=== PATIENT | male | born 1995 | race Caucasian/White ===

== ENCOUNTER 2020-12-29 12:05 | Emergency (ER) | payer OTHER ==
[2020-12-29 12:16] VITALS: RESP 18
[2020-12-29] MEDS ORDERED: MORPHINE SULFATE 2 MG/ML SYRINGE IVP ONE (12:20)
--- NOTE | 2020-12-29 12:21 | ED ---
Wound/Laceration HPI - General Source: patient, RN notes reviewed Mode of arrival: ambulatory Limitations: no limitations <Sea Herman - Last Filed: 12/29/20 12:21> - General Source: patient, RN notes reviewed Limitations: no limitations <Rebel Alfaro - Last Filed: 12/29/20 13:51> - General Chief Complaint: Wound/Laceration Stated Complaint: Foot lac IHS - History of Present Illness Initial Comments: 25-year-old male presents emergency department with a right great toe second toe third toe laceration due to a power washing accident work. He states his pain is about a 4-5 out of 10, his toes are more numb and tingly and painful. ( Sea Herman) Patient is a pleasant 25-year-old male presenting to the emergency Department with injury to the right foot. Incident occurred just prior to arrival. Patient had a power saw mechanic that was hooked up to a fire hydrant. Patient states there was strong on a pressure. Patient states he was cleaning out a large box. Patient states it was only water, no chemicals involved in the power saw mechanic. Patient states he accidentally had the power saw mechanic go over his right boot. Pat tjnt complains of discomfort 4/10. No other area of injury or concern. Patient denies any fall. No head injury. No neck or back pain. No chest pain or dyspnea. No abdominal pain. Unclear last tetanus immunization. (Rebel Alfaro) - Related Data Home Medications Medication Instructions Recorded Confirmed Multivitamin [Multivitamins Adult 2 tab PO DAILY 12/29/20 12/29/20 Gummies] Allergies Allergy/AdvReac Type Severity Reaction Status Date / Time No Known Allergies Allergy Verified 12/29/20 13:04 Review of Systems ROS Other: All systems not noted in ROS Statement are negative. <Sea Herman - Last Filed: 12/29/20 12:21> ROS Other: All systems not noted in ROS Statement are negative. Constitutional: Denies: fever Eyes: Denies: eye pain ENT: Denies: ear pain Respiratory: Denies: cough Cardiovascular: Denies: chest pain Endocrine: Denies: fatigue Gastrointestinal: Denies: abdominal pain Genitourinary: Denies: dysuria Musculoskeletal: Reports: as per HPI. Denies: back pain Skin: Reports: as per HPI Neurological: Denies: headache <Rebel Alfaro - Last Filed: 12/29/20 13:51> ROS Statement: Those systems with pertinent positive or pertinent negative responses have been documented in the HPI. Past Medical History Past Medical History: No Reported History History of Any Multi-Drug Resistant Organisms: None Reported Past Surgical History: No Surgical Hx Reported Past Psychological History: No Psychological Hx Reported Smoking Status: Vaper Past Alcohol Use History: Occasional Past Drug Use History: Marijuana <Sea Herman - Last Filed: 12/29/20 12:21> General Exam Limitations: no limitations General appearance: alert, in no apparent distress Head exam: Present: atraumatic, normocephalic, normal inspection Respiratory exam: Present: normal lung sounds bilaterally. Absent: respiratory distress, wheezes, rales, rhonchi, stridor Cardiovascular Exam: Present: regular rate, normal rhythm, normal heart sounds. Absent: systolic murmur, diastolic murmur, rubs, gallop, clicks GI/Abdominal exam: Present: soft, normal bowel sounds. Absent: distended, tenderness, guarding, rebound, rigid Extremities exam: Absent: full ROM (Decreased range of motion of right great toe second toe third toe), tenderness, normal capillary refill (Decreased capillary refill in the right great toe second toe third toe.), pedal edema, joint swelling, calf tenderness Neurological exam: Present: alert, oriented X3, CN II-XII intact Psychiatric exam: Present: normal affect, normal mood Skin exam: Present: warm, dry, intact, normal color. Absent: rash <Sea Herman - Last Filed: 12/29/20 12:21> Limitations: no limitations General appearance: alert Head exam: Present: atraumatic Eye exam: Present: normal appearance, PERRL ENT exam: Present: normal oropharynx Neck exam: Present: normal inspection. Absent: tenderness Respiratory exam: Present: normal lung sounds bilaterally Cardiovascular Exam: Present: regular rate, normal rhythm Expanded Peripheral pulses: 2+: Posterior Tibialis (R), Dorsalis Pedis (R) GI/Abdominal exam: Present: soft. Absent: tenderness Extremities exam: Present: other (Right distal foot just proximal to the great toe with laceration that extends laterally just proximal to the second toe as we ll as distally through the great toe. Right great toe appears dusky. Limited Refill. Some weakness with dorsiflexion. Second toe has significant weakness with dorsiflexion) Right Neurovascular tendon exam: Present: abnormal cap refill (Great toe), motor deficit (Second toe, moderate to large weakness. First and third toe with mild weakness), sensory deficit, pallor (Great toe) Back exam: Present: normal inspection. Absent: vertebral tenderness Neurological exam: Present: alert, CN II-XII intact Psychiatric exam: Present: normal affect, normal mood Skin exam: Present: other (Foot laceration) <Rebel Alfaro - Last Filed: 12/29/20 13:51> Course <Rebel Alfaro - Last Filed: 12/29/20 13:51> Vital Signs 12/29/20 12:09 Temperature 98.6 F Pulse Rate 93 Respiratory 18 Rate Blood Pressure 149/84 O2 Sat by Pulse 98 Oximetry - Reevaluation(s) Reevaluation #1: 12/29/20 12:49 Orthopedic trauma has been paged 12/29/20 12:50 Case discussed with practitioner ke with orthopedics will come evaluate the patient 12/29/20 13:04 Area was irrigated with saline and Betadine. Case again discussed with practitioner ke who did speak with Dr. Anderson and does recommend transfer for orthopedic trauma. They do recommend [facility] 12/29/20 13:15 Attempting to get a hold of orthopedic trauma, Dr. Rai who has been paged 12/29/20 13:30 Patient reevaluated and updated. 12/29/20 13:39 Case was discussed with Dr. Rai who has concerns regarding accepting the case secondary to microvascular injury and does recommend [facility]. We are attempting to get a hold of them at this time 12/29/20 13:48 Case was discussed with [facility], and she who transferred me to the transfer center in the next woke with Efraín, who transferred me to Dr. Gabriel Leal and. He will accept transfer to the emergency department. EMS has been notified of stat transfer. 12/29/20 13:50 Patient again reevaluated and updated on plan. (Rebel Alfaro) Medical Decision Making - Lab Data Result diagrams: 12/29/20 12:50 12/29/20 12:50 - Radiology Data Radiology results: image reviewed (X-ray consistent with history of laceration. Significant subcutaneous emphysema.) <Rebel Alfaro - Last Filed: 12/29/20 13:51> - Lab Data Lab Results 12/29/20 12/29/20 12/29/20 Range/Units 12:50 12:50 12:50 WBC 11.1 H (3.8-10.6) k/uL RBC 5.22 (4.30-5.90) m/uL Hgb 15.4 (13.0-17.5) gm/dL Hct 44.9 (39.0-53.0) % MCV 86.1 (80.0-100.0) fL MCH 29.5 (25.0-35.0) pg MCHC 34.3 (31.0-37.0) g/dL RDW 12.9 (11.5-15.5) % Plt Count 214 (150-450) k/uL MPV 7.7 Neutrophils % 75 % Lymphocytes % 17 % Monocytes % 6 % Eosinophils % 1 % Basophils % 0 % Neutrophils # 8.3 H (1.3-7.7) k/uL Lymphocytes # 1.9 (1.0-4.8) k/uL Monocytes # 0.7 (0-1.0) k/uL Eosinophils # 0.1 (0-0.7) k/uL Basophils # 0.0 (0-0.2) k/uL PT 10.5 (9.0-12.0) sec INR 1.0 (<1.2) APTT 21.7 L (22.0-30.0) sec Sodium 138 (137-145) mmol/L Potassium 3.8 (3.5-5.1) mmol/L Chloride 102 (98-107) mmol/L Carbon Dioxide 30 (22-30) mmol/L Anion Gap 6 mmol/L BUN 24 H (9-20) mg/dL Creatinine 0.88 (0.66-1.25) mg/dL Est GFR (CKD-EPI)AfAm >90 (>60 ml/min/1.73 sqM) Est GFR (CKD-EPI)NonAf >90 (>60 ml/min/1.73 sqM) Glucose 110 H (74-99) mg/dL Calcium 9.5 (8.4-10.2) mg/dL Total Bilirubin 0.3 (0.2-1.3) mg/dL AST 39 (17-59) U/L ALT 45 (4-49) U/L Alkaline Phosphatase 83 (38-126) U/L Total Protein 7.3 (6.3-8.2) g/dL Albumin 4.6 (3.5-5.0) g/dL Critical Care Time Critical Care Time: Yes Total Critical Care Time: 44 <Rebel Alfaro - Last Filed: 12/29/20 13:51> Disposition <Sea Herman - Last Filed: 12/29/20 12:21> Is patient prescribed a controlled substance at d/c from ED?: No Time of Disposition: 13:50 - Out of Hospital Transfer - Req. Specs Out of Hospital Transfer - Requested Specifics: Other Emergency Center <Rebel Alfaro - Last Filed: 12/29/20 13:51> Clinical Impression: Foot laceration, Tendon injury, Vascular injury Disposition: OTHER INSTITUTION NOT DEFINED Condition: Serious Referrals: None,Stated [Primary Care Provider] - 1-2 days
[2020-12-29] MEDS ORDERED: DIPH,PERTUS(ACELL)TETVAC-LF 0.5 ML VIAL IM ONE (12:37)
[2020-12-29] MEDS ORDERED: MORPHINE SULFATE 2 MG/ML SYRINGE IVP STA (12:42)
[2020-12-29 13:01] LABS: Basophils % (A) 0 %; Eosinophils # (A) 0.1 k/uL (0-0.7); Eosinophils % (A) 1 %; HCT 44.9 % (39.0-53.0); HGB 15.4 gm/dL (13.0-17.5); Lymphocytes # (A) 1.9 k/uL (1.0-4.8); Lymphocytes % (A) 17 %; MCH 29.5 pg (25.0-35.0); MCHC 34.3 g/dL (31.0-37.0); MCV 86.1 fL (80.0-100.0); Mean Platelet Volume 7.7; Monocytes # (A) 0.7 k/uL (0-1.0); Monocytes % (A) 6 %; Neutrophils # (A) 8.3 k/uL (1.3-7.7); Neutrophils % (A) 75 %; Platelet Count 214 k/uL (150-450); RBC 5.22 m/uL (4.30-5.90); RDW 12.9 % (11.5-15.5); WBC 11.1 k/uL (3.8-10.6)
[2020-12-29 13:12] LABS: ALT 45 U/L (4-49); AST 39 U/L (17-59); African American GFR (CKD) >90 (>60 ml/min/1.73 sqM); Albumin 4.6 g/dL (3.5-5.0); Alkaline Phosphatase 83 U/L (38-126); Anion Gap 6 mmol/L; Blood Urea Nitrogen 24 mg/dL (9-20); Calcium 9.5 mg/dL (8.4-10.2); Carbon Dioxide 30 mmol/L (22-30); Chloride 102 mmol/L (98-107); Glucose 110 mg/dL (74-99); Non-African American GFR(CKD) >90 (>60 ml/min/1.73 sqM); Potassium 3.8 mmol/L (3.5-5.1); Sodium 138 mmol/L (137-145); Total Bilirubin 0.3 mg/dL (0.2-1.3); Total Protein 7.3 g/dL (6.3-8.2)
[2020-12-29 13:13] LABS: Prothrombin Time 10.5 sec (9.0-12.0)
[2020-12-29 13:16] LABS: Partial Thromboplastin Time 21.7 sec (22.0-30.0)
--- NOTE | 2020-12-29 13:28 | XR ---
Right foot HISTORY: Trauma and laceration, pain Reviews the right foot There is extensive subcutaneous emphysema. Bone mineralization, joint spaces and alignment are mainta ined. IMPRESSION: Findings consistent with patient's history of laceration. No fracture or dislocation is e vident.
[2020-12-29] MEDS ORDERED: MORPHINE SULFATE 4 MG/ML SYRINGE IVP STA (13:53)
[2020-12-29 14:16] VITALS: BP 128/76; PULSE 82; TEMP 98.2
== END 2020-12-29 14:22 | disposition other institution (70) ==
LOC: EC 12:05
DX: S91.311A Laceration without foreign body, right foot, initial encounter (principal); W29.8XXA Contact with other powered hand tools and household machinery, initial encounter; Z23 Encounter for immunization
CPT/HCPCS: 36415; 80053; 85025; 85610; 85730; 73630; 90715; 99284; 96365; 96375; 96376; 90471; J2270 ×2; J0690